=== PATIENT | male | born 1970 | race Caucasian/White ===

== ENCOUNTER → 2017-07-28 | Outpatient (CLI) | payer MEDICAID ==
[~2017-07-28] MED LIST: FLONASE 50 MCG16 GM; GLIMEPIRIDE 4MG4 MG PO; JANUVIA100 MG PO; LISINOPRIL5 MG NG; LORTAB 500 MG-71 TAB PO; METFORMIN500 MG PO; MOTRIN600 MG PO; PREDNISONE 20MG20 MG PO; SIMVASTATIN10 MG PO; TYLENOL ES500 M1 PO; ULTRAM 50 MG TA50 MG PO; VICODIN 5/500 T1 TAB PO; VOLTAREN75 MG PO; ZITHROMAX Z PA250 MG PO; ZOFRAN4 MG PO
== END ==
LOC: UTC.OUT 11:52
DX: Z02.4 Encounter for examination for driving license (principal)